=== PATIENT | male | born 1980 | race Caucasian/White ===

== ENCOUNTER 2020-07-27 07:11 | Emergency (ER) | payer MEDICARE, MEDICAID ==
--- NOTE | 2020-07-27 08:57 | CR ---
[id number] RAD/RAD Chest PA And Lateral EXAM: RAD Chest PA And Lateral CLINICAL DATA: FEVER AND COUGH TESTICULAR CANCER COMPARISON: CORRELATION IS MADE WITH THE CAT SCAN OF MAY 19, 2017 FINDINGS: An extensive right upper lobe infiltrate is seen The lungs otherwise are clear The cardiomediastinal contour is normal IMPRESSION: RIGHT UPPER LOBE PNEUMONIA CONSIDER FOLLOW-UP UNTIL CLEARING Chaitanya Khan MD 07/27/20 0856 Thank you for allowing us to participate in the care of your patient.
[2020-07-27 09:08] LABS: CHLORIDE,CL 106 mmol/L (98-107); SODIUM,NA 143 mmol/L (136-145)
[2020-07-27 09:10] LABS: ANION GAP 16.3 mmol/L (10-20)
--- NOTE | 2020-07-27 09:11 | EDM.PDOC ---
ED HPI GENERAL MEDICAL PROBLEM - General Chief Complaint: Fever Stated Complaint: FEVER Time Seen by Provider: 07/27/20 07:50 Source of Information: Reports: Other History Limitations: Reports: Altered Mental Status - History of Present Illness INITIAL COMMENTS - FREE TEXT/NARRATIVE: Patient is brought to the emergency department today [facility] with concerns of a fever. This patient has quite a bit of cognitive delay and is nonverbal. HPI is obtained from the staff that take care of the patient on a regular basis. Yesterday the patient was not identified to have any symptoms or complaints. This morning starting about 530 he has had a quite high fever. He was given some Tylenol prior to coming to the emergency department. He has had a pretty congested cough at the [facility]. He has not been vomiting no diarrhea. He has not been exposed anyone ill that they are aware of. He has been eating and drinking appropriately. Rest of the HPI and ROS is unobtainable due to the patient's mental inability to be verbal. Treatments HAT CHECKER: Reports: Acetaminophen - Related Data Allergies Allergy/AdvReac Type Severity Reaction Status Date / Time codeine Allergy Other Verified 07/27/20 07:50 phenylephrine Allergy Other Verified 07/27/20 07:50 promethazine HCl Allergy Other Verified 07/27/20 07:50 [From Phenergan] hydrocortisone AdvReac Agitation Verified 07/27/20 07:50 ibuprofen AdvReac Agitation Verified 07/27/20 07:50 tramadol AdvReac Agitation Verified 07/27/20 07:50 Home Meds: Home Meds Balsalazide [Colazal] 3 tab PO TID 05/12/14 [History] Calcium Carbonate/Vitamin D3 [Calcium 500 + Vit D 400] 500 mg PO BID 05/12/14 [History] Gabapentin [Neurontin] 400 mg PO TID 05/12/14 [History] Lidocaine 2% [Xylocaine 2% Jelly] 5 ml PO Q2HR PRN 05/12/14 [History] QUEtiapine [SEROquel] 200 mg PO BEDTIME 05/12/14 [History] azaTHIOprine [Azasan] 100 mg PO BID 05/12/14 [History] Betamethasone Dipropionate [Diprolene 0.05% Oint] 15 gm TOP BID PRN 09/29/14 [History] Docosanol [Abreva 10%] 1 applic TOP 5XDAY PRN 09/29/14 [History] Multivitamin [Multi-Vitamin Daily] 1 tab PO DAILY 09/29/14 [History] Omeprazole [Prilosec] 20 mg PO DAILY 09/29/14 [History] Petrolatum,White/Zinc Oxide [Sensi-Care Protective Ointment] 1 applic TOP ASDIRECTED PRN 09/29/14 [History] Sucralfate [Carafate] 1 gm PO QIDACANDBED PRN 09/29/14 [History] Divalproex Sodium 2 cap PO QAM 09/12/16 [History] Divalproex Sodium 4 cap PO BEDTIME 09/12/16 [History] Polyethylene Glycol 3350 [MiraLAX] 17 gm PO DAILY 09/12/16 [History] predniSONE [Deltasone] 40 mg PO DAILY #6 tablet 09/12/16 [Rx] Doxycycline [Vibra-Tabs] 100 mg PO Q12HR #14 tab 07/27/20 [Rx] Past Medical History HEENT History: Reports: Hard of Hearing Gastrointestinal History: Reports: Chronic Constipation, Other (See Below) Other Gastrointestinal History: Crohns Genitourinary History: Reports: Acute Renal Failure Musculoskeletal History: Reports: Arthritis, Osteoporosis Neurological History: Reports: Seizure Psychiatric History: Reports: Autism Oncologic (Cancer) History: Reports: Other (See Below) Other Oncologic History: testicular - Past Surgical History HEENT Surgical History: Reports: Adenoidectomy, Tonsillectomy Social & Family History - Tobacco Use Tobacco Use Status *Q: Current Status Unknown ED ROS GENERAL - Review of Systems Review Of Systems: Unable To Obtain Reason Not Obtained: Nonverbal patient ED EXAM, GENERAL - Physical Exam Exam: See Below Free Text/Narrative:: This patient is alert and interactive. He really does not follow commands and he does not allow for physical examination so some of my exam is limited by the patient's inability to follow simple directions like open his mouth. Exam Limited By: Altered Mental Status General Appearance: Alert, WD/WN, No Apparent Distress, Anxious (He is anxious although this is common for him when he goes to the medical facilities according to his caregiver.) Eye Exam: Bilateral Eye: EOMI, PERRL Ears: Normal External Exam, Normal TMs Nose: Normal Inspection Throat/Mouth: No: Normal Inspection (Able to examine as he does not open his mouth) Head: Atraumatic, Normocephalic Neck: No: Normal Inspection (Unable to examine does not allow) Respiratory/Chest: No Respiratory Distress, No Accessory Muscle Use, Decreased Breath Sounds (Decreased breath sounds in the right upper lobe with some inspiratory crackles. No wheezing rhonchi.), Other (He does have a pretty congested cough. His mask that he is wearing has a bunch of thick purulent sput um on the inside of it.). No: Respiratory Distress Cardiovascular: Normal Peripheral Pulses, Regular Rate, Rhythm Peripheral Pulses: 2+: Radial (L), Radial (R), Posterior Tibial (L), Posterior Tibial (R), Dorsalis Pedis (L), Dorsalis Pedis (R) GI/Abdominal: Normal Bowel Sounds, Soft, Non-Tender (Male) Exam: Deferred Rectal (Males) Exam: Deferred Back Exam: Normal Inspection, Full Range of Motion Extremities: Normal Inspection, Normal Range of Motion, Non-Tender, No Pedal Edema, Normal Capillary Refill Neurological: Alert Psychiatric: Anxious Skin Exam: Dry, Intact, No Rash, Erythema, Increased Warmth Course - Vital Signs Last Recorded V/S: Last Vital Signs Temp 99.5 F 07/27/20 09:15 Pulse 86 07/27/20 09:15 Resp 18 07/27/20 09:15 BP Pulse Ox 98 07/27/20 09:15 - Orders/Labs/Meds Labs: Laboratory Tests 07/27/20 07/27/20 07/27/20 Range/Units 07:14 08:48 08:48 WBC 14.8 H (4.0-10.0) x10^3/uL RBC 4.45 L (4.5-6.0) x10^6/uL Hgb 14.6 (14.0-18.0) g/dL Hct 42.9 (40.0-52.0) % MCV 96.4 H D (78.0-93.0) fL MCH 32.8 H (26.0-32.0) pg MCHC 34.0 (32.0-36.0) g/dL RDW Coeff of Sarah 12.3 (10.0-15.0) % Plt Count 246 D (130-400) x10^3/uL Add Manual Diff Yes Neutrophils % (Manual) 58 (50-80) % Band Neutrophils % 11 H (0-6) % Lymphocytes % (Manual) 2 L (25-50) % Reactive Lymphs % 2 H (0) % Atypical Lymphs % 6 H (0) % Monocytes % (Manual) 16 H (2-11) % Metamyelocytes % 3 H (0) % Myelocytes % 1 H (0) % Promyelocytes % 1 H (0) % Platelet Estimate Adequate Sodium 143 (136-145) mmol/L Potassium 4.3 (3.5-5.1) mmol/L Chloride 106 (98-107) mmol/L Carbon Dioxide 25 (21-32) mmol/L Anion Gap 16.3 (10-20) mmol/L BUN 24 H (7-18) mg/dL Creatinine 1.3 (0.70-1.30) mg/dL Est Cr Clr Drug Dosing TNP Estimated GFR (MDRD) > 60 Glucose 96 (74-106) mg/dL Lactic Acid (0.4-2.0) mmol/L Calcium 10.1 (8.5-10.1) mg/dL Corrected Calcium 10.82 H (8.5-10.1) mg/dL Total Bilirubin 0.5 (0.2-1.0) mg/dL AST 26 (15-37) U/L ALT 26 (16-63) U/L Alkaline Phosphatase 79 (46-116) U/L C-Reactive Protein 7.6 H (<=0.9) mg/dL Total Protein 8.0 (6.4-8.2) g/dL Albumin 3.1 L (3.4-5.0) g/dL Globulin 4.9 Albumin/Globulin Ratio 0.63 SARS CoV-2 RNA Rapid SANDRA Negative (NEGATIVE) 07/27/20 Range/Units 08:48 WBC (4.0-10.0) x10^3/uL RBC (4.5-6.0) x10^6/uL Hgb (14.0-18.0) g/dL Hct (40.0-52.0) % MCV (78.0-93.0) fL MCH (26.0-32.0) pg MCHC (32.0-36.0) g/dL RDW Coeff of Sarah (10.0-15.0) % Plt Count (130-400) x10^3/uL Add Manual Diff Neutrophils % (Manual) (50-80) % Band Neutrophils % (0-6) % Lymphocytes % (Manual) (25-50) % Reactive Lymphs % (0) % Atypical Lymphs % (0) % Monocytes % (Manual) (2-11) % Metamyelocytes % (0) % Myelocytes % (0) % Promyelocytes % (0) % Platelet Estimate Sodium (136-145) mmol/L Potassium (3.5-5.1) mmol/L Chloride (98-107) mmol/L Carbon Dioxide (21-32) mmol/L Anion Gap (10-20) mmol/L BUN (7-18) mg/dL Creatinine (0.70-1.30) mg/dL Est Cr Clr Drug Dosing Estimated GFR (MDRD) Glucose (74-106) mg/dL Lactic Acid 2.7 H* (0.4-2.0) mmol/L Calcium (8.5-10.1) mg/dL Corrected Calcium (8.5-10.1) mg/dL Total Bilirubin (0.2-1.0) mg/dL AST (15-37) U/L ALT (16-63) U/L Alkaline Phosphatase (46-116) U/L C-Reactive Protein (<=0.9) mg/dL Total Protein (6.4-8.2) g/dL Albumin (3.4-5.0) g/dL Globulin Albumin/Globulin Ratio SARS CoV-2 RNA Rapid SANDRA (NEGATIVE) Meds: Medications Discontinued Medications Generic Name Dose Route Start Last Admin Trade Name Freq PRN Reason Stop Dose Admin Doxycycline Hyclate 100 mg 07/27/20 09:10 07/27/20 09:32 Vibramycin PO 07/27/20 09:11 100 mg ONETIME ONE Administration - Radiology Interpretation Free Text/Narrative:: Chest x-ray per radiology shows a right upper lobe pneumonia. An extensive right upper lobe infiltrate is seen. - Re-Assessments/Exams Free Text/Narrative Re-Assessment/Exam: Laboratory evaluation with a white blood cell count of 14.8, hemoglobin 14.6 platelet count 246. He does have banded neutrophils at 11. Influenza and Covid is negative. Chemistries sodium potassium are normal. BUN 24 creatinine 1.3. Lactic acid mildly elevated at 2.7 C-reactive protein 7.6. I would like to start an IV on this patient and try to hydrate him although the staff states that he does not do very well with this and most likely become quite agitated and combative it was very very very difficult for us to even obtain any laboratory evaluation drawn from this patient. Out elevation of his lactic but he is not overtly tachycardic. We will have him push fluids aggressively at the [facility]. He was started on doxycycline in the emergency department. He is to recheck if he is getting worse by any means. They are comfortable with this plan his questions are answered. Departure - Departure Time of Disposition: :27 Disposition: Home, Self-Care 01 Clinical Impression: Pneumonia Qualifiers: Pneumonia type: due to other aerobic Gram-negative bacteria Laterality: right Lung location: upper lobe of lung Qualified Code(s): J15.6 - Pneumonia due to other Gram-negative bacteria - Discharge Information Prescriptions: Doxycycline [Vibra-Tabs] 100 mg PO Q12HR #14 tab Instructions: Community-Acquired Pneumonia, Adult, [id number] Referrals: Una Ohara MD [Primary Care Provider] - Forms: ED Department Discharge Additional Instructions: Tylenol and or Ibuprofen as needed for pain fever discomfort. Push oral fluids as much as possible over the next few days. He should be urinating every 2 hours or so to know that he is getting enough fluids. Doxycycline, 1 tablet twice daily for the next 7 days. First dose given in the ED and Rx sent to [facility]. Return to the ED if new or worsening symptoms. Follow up with PCP in the next week if any concerns. Consider repeat CXR in 6 weeks to ensure resolution of the pneumonia. Sepsis Event Note (ED) - Evaluation Sepsis Screening Result: No Definite Risk - Focused Exam Vital Signs: Vital Signs Temp Pulse Resp Pulse Ox 07/27/20 09:15 99.5 F 86 18 98 07/27/20 08:15 99.5 F 19
[2020-07-27] MEDS: Doxycycline 100 MG Cap PO ONE (09:32)
[2020-07-27 10:58] VITALS: PULSE 86
== END 2020-07-27 09:43 | disposition home or self-care (01) ==
LOC: VM.ED 07:11
DX: J15.6 Pneumonia due to other Gram-negative bacteria (principal); R56.9 Unspecified convulsions; F84.0 Autistic disorder; Z79.899 Other long term (current) drug therapy; Z20.828 Contact with and (suspected) exposure to other viral communicable diseases; Z88.5 Allergy status to narcotic agent; Z88.8 Allergy status to other drugs, medicaments and biological substances; Z88.6 Allergy status to analgesic agent
CPT/HCPCS: 36415; 71046; 80053; 83605; 85025; 86140; 87804; 87804-59; 99283-25; 99284; A9270-GY; U0002

== ENCOUNTER 2020-08-19 14:38 | Emergency (ER) | payer MEDICARE, MEDICAID ==
[2020-08-19] MEDS ORDERED: Take Home: Levofloxacin 500 MG Tab, 1 Tab Pack PO ONE (14:58)
[2020-08-19 14:59] VITALS: BP 179/140; PULSE 112
[2020-08-19] MEDS ORDERED: Levofloxacin 500 MG Tab PO ONE (15:00)
--- NOTE | 2020-08-19 15:08 | EDM.PDOC ---
ED HPI GENERAL MEDICAL PROBLEM - General Chief Complaint: Respiratory Problem Stated Complaint: COUGH Time Seen by Provider: 08/19/20 14:40 Source of Information: Reports: Jail Records, Other (home health care physician ) History Limitations: Reports: Other (pt non verbal 2nd autism ) - History of Present Illness INITIAL COMMENTS - FREE TEXT/NARRATIVE: Patient brought in via caregiver after custodial nurse questionable abnormal lung sounds and intermittent fever for the last 24 hours. Patient was tested positive for Covid July 24 was given 7 days of doxycycline and has been ongoing fine until cough that started yesterday and a fever of 100.5. Per caregiver he has been his normal self with normal baseline eating and drinking normally no signs or symptoms of any lethargy she states he is doing fine. Duration: Day(s): Associated Symptoms: Reports: Cough. Denies: cough w sputum, Malaise, Nausea/Vomiting, Seizure, Shortness of Breath, Syncope - Related Data Allergies Allergy/AdvReac Type Severity Reaction Status Date / Time codeine Allergy Other Verified 07/27/20 07:50 phenylephrine Allergy Other Verified 07/27/20 07:50 promethazine HCl Allergy Other Verified 07/27/20 07:50 [From Phenergan] hydrocortisone AdvReac Agitation Verified 07/27/20 07:50 ibuprofen AdvReac Agitation Verified 07/27/20 07:50 tramadol AdvReac Agitation Verified 07/27/20 07:50 Home Meds: Home Meds Balsalazide [Colazal] 3 tab PO TID 05/12/14 [History] Calcium Carbonate/Vitamin D3 [Calcium 500 + Vit D 400] 500 mg PO BID 05/12/14 [History] Gabapentin [Neurontin] 400 mg PO TID 05/12/14 [History] Lidocaine 2% [Xylocaine 2% Jelly] 5 ml PO Q2HR PRN 05/12/14 [History] QUEtiapine [SEROquel] 200 mg PO BEDTIME 05/12/14 [History] azaTHIOprine [Azasan] 100 mg PO BID 05/12/14 [History] Betamethasone Dipropionate [Diprolene 0.05% Oint] 15 gm TOP BID PRN 09/29/14 [History] Docosanol [Abreva 10%] 1 applic TOP 5XDAY PRN 09/29/14 [History] Multivitamin [Multi-Vitamin Daily] 1 tab PO DAILY 09/29/14 [History] Omeprazole [Prilosec] 20 mg PO DAILY 09/29/14 [History] Petrolatum,White/Zinc Oxide [Sensi-Care Protective Ointment] 1 applic TOP ASDIRECTED PRN 09/29/14 [History] Sucralfate [Carafate] 1 gm PO QIDACANDBED PRN 09/29/14 [History] Divalproex Sodium 2 cap PO QAM 09/12/16 [History] Divalproex Sodium 4 cap PO BEDTIME 09/12/16 [History] Polyethylene Glycol 3350 [MiraLAX] 17 gm PO DAILY 09/12/16 [History] predniSONE [Deltasone] 40 mg PO DAILY #6 tablet 09/12/16 [Rx] Doxycycline [Vibra-Tabs] 100 mg PO Q12HR #14 tab 07/27/20 [Rx] Past Medical History HEENT History: Reports: Hard of Hearing Gastrointestinal History: Reports: Chronic Constipation, Other (See Below) Other Gastrointestinal History: Crohns Genitourinary History: Reports: Acute Renal Failure Musculoskeletal History: Reports: Arthritis, Osteoporosis Neurological History: Reports: Seizure Psychiatric History: Reports: Autism Oncologic (Cancer) History: Reports: Other (See Below) Other Oncologic History: testicular - Past Surgical History HEENT Surgical History: Reports: Adenoidectomy, Tonsillectomy Social & Family History - Tobacco Use Tobacco Use Status *Q: Never Tobacco User - Recreational Drug Use Recreational Drug Use: No ED ROS GENERAL - Review of Systems Review Of Systems: See Below Constitutional: Reports: Fever. Denies: Weakness, Fatigue, Diaphoresis, Decreased Appetite HEENT: Reports: No Symptoms Respiratory: Reports: Cough. Denies: Shortness of Breath, Wheezing, Pleuritic Chest Pain, Sputum Cardiovascular: Reports: No Symptoms Endocrine: Reports: No Symptoms GI/Abdominal: Reports: No Symptoms : Reports: No Symptoms Musculoskeletal: Reports: No Symptoms Skin: Reports: No Symptoms Neurological: Reports: No Symptoms, Other (No changes of baseline) Psychiatric: Reports: No Symptoms Hematologic/Lymphatic: Reports: No Symptoms Immunologic: Reports: No Symptoms ED EXAM, GENERAL - Physical Exam Exam: See Below Exam Limited By: No Limitations General Appearance: Alert, WD/WN, No Apparent Distress, Other Eye Exam: Bilateral Eye: Normal Inspection, PERRL Ears: Normal External Exam, Normal Canal, Hearing Grossly Normal, Other (The left has complete cerumen impaction the right is 50% there is normal landmarks normal light reflection no signs or symptoms of any infection) Nose: Normal Inspection, Normal Mucosa, No Blood Throat/Mouth: Normal Inspection, Normal Lips, Normal Teeth, Normal Gums, Normal Oropharynx, No Airway Compromise. No: Normal Voice Head: Atraumatic, Normocephalic Neck: Normal Inspection, Supple, Non-Tender, Full Range of Motion. No: Lymphadenopathy (L), Lymphadenopathy (R) Respiratory/Chest: No Respiratory Distress, Lungs Clear, Normal Breath Sounds, No Accessory Muscle Use, Chest Non-Tender Cardiovascular: Normal Peripheral Pulses, Regular Rate, Rhythm, No Edema, No Gallop, No JVD, No Murmur, No Rub GI/Abdominal: Normal Bowel Sounds, Soft, Non-Tender, No Organomegaly, No Distention. No: Guarding, Rigid, Rebound, Tender Back Exam: Full Range of Motion Extremities: Normal Inspection, Normal Range of Motion Neurological: Alert, Normal Gait Psychiatric: Normal Affect, Normal Mood Skin Exam: Warm, Dry, Intact, Normal Color, No Rash Lymphatic: No Adenopathy Course - Vital Signs Text/Narrative:: Secondary to the patient's history at this time we will treat conservatively and prophylactically we will hold on blood work Secondary to the patient just being tested for Covid and having antibiotics on board blood cultures were also be heldand chest x-ray I discussed this with the caregiver and the patient's nurse they agree with course of treatment I will cover him with 750 of Levaquin daily x7 days if anything changes he is to follow-up with his primary care provider return to the emergency room Last Recorded V/S: Last Vital Signs Temp 36.7 C 08/19/20 14:55 Pulse 112 H 08/19/20 14:55 Resp 20 08/19/20 14:55 BP 179/140 H 08/19/20 14:55 Pulse Ox 93 L 08/19/20 14:55 - Orders/Labs/Meds Orders: Active Orders 24 hr Category Date Time Status levoFLOXacin [Levaquin] Med 08/19/20 15:00 Once 750 mg PO ONETIME ONE Meds: Medications Discontinued Medications Generic Name Dose Route Start Last Admin Trade Name Freq PRN Reason Stop Dose Admin Levofloxacin 2 packet 08/19/20 14:58 Take Home: Levofloxacin 500 Mg, 1 Tab Pack PO 08/19/20 14:59 ONETIME ONE Departure - Departure Time of Disposition: 15:05 Disposition: Home, Self-Care 01 Condition: Good Clinical Impression: Cough, Fever - Discharge Information *PRESCRIPTION DRUG MONITORING PROGRAM REVIEWED*: Not Applicable *COPY OF PRESCRIPTION DRUG MONITORING REPORT IN PATIENT LAILA: Not Applicable Sepsis Event Note (ED) - Evaluation Sepsis Screening Result: Possible Sepsis Risk - Focused Exam Vital Signs: Vital Signs Temp Pulse Resp BP Pulse Ox 08/19/20 14:55 36.7 C 112 H 20 179/140 H 93 L - Problem List & Annotations (1) Cough SNOMED Code(s): 43872709 Code(s): R05 - COUGH Status: Acute (2) Fever SNOMED Code(s): 530688392 Code(s): R50.9 - FEVER, UNSPECIFIED Status: Acute - My Orders Last 24 Hours: My Active Orders 08/19/20 15:00 levoFLOXacin [Levaquin] 750 mg PO ONETIME ONE - Assessment/Plan Last 24 Hours: My Active Orders 08/19/20 15:00 levoFLOXacin [Levaquin] 750 mg PO ONETIME ONE
== END 2020-08-19 15:47 | disposition home or self-care (01) ==
LOC: VM.ED 14:38
DX: R50.9 Fever, unspecified (principal); R05 Cough; H61.22 Impacted cerumen, left ear; R56.9 Unspecified convulsions; F84.0 Autistic disorder; Z88.5 Allergy status to narcotic agent; Z88.8 Allergy status to other drugs, medicaments and biological substances; Z88.6 Allergy status to analgesic agent; Z79.899 Other long term (current) drug therapy
CPT/HCPCS: 99283; 99284; A9270-GY

== ENCOUNTER 2024-10-13 20:30 | Emergency (ER) | payer MEDICARE, MEDICAID ==
[2024-10-13 20:51] VITALS: BP 115/75; PULSE 76
[2024-10-13] MEDS: Lidocaine 1% 30 ML SDV INJECT ONE (21:03)
== END 2024-10-13 20:55 ==
LOC: VM.ED 20:30
DX: S01.01XA Laceration without foreign body of scalp, initial encounter (principal); S09.90XA Unspecified injury of head, initial encounter; Z79.899 Other long term (current) drug therapy; Z88.5 Allergy status to narcotic agent; Z88.8 Allergy status to other drugs, medicaments and biological substances; Z88.6 Allergy status to analgesic agent; W01.198A Fall on same level from slipping, tripping and stumbling with subsequent striking against other object, initial encounter
CPT/HCPCS: 12002; 99283; J3490